=== PATIENT | male | born 1960 | race African-American/Black ===

== ENCOUNTER 2025-05-14 10:53 | Inpatient (IN) | payer OTHER ==
[~2025-05-14] VITALS: Ht 175.3 cm; Wt 92.5 kg
[2025-05-14 10:55] VITALS: O2SAT 100
[2025-05-14 11:24] LABS: HEMATOCRIT. 45.3 % (42.0-52.0); HEMOGLOBIN. 14.8 g/dL (14.0-18.0); MEAN PLATELET VOLUME 7.8 fl (7.4-10.4); PLATELET 335 x1000/uL (130-400); RED BLOOD CELL COUNT 4.97 mill/uL (4.7-6.1); RED CELL DISTRIBUTION WIDTH 15.1 % (11.6-14.6)
[2025-05-14 11:38] LABS: CREATININE 0.9 mg/dL (0.6-1.3); UREA NITROGEN BLOOD 9 mg/dL (9-23)
[2025-05-14 11:39] LABS: TROPONIN I HIGH SENSITIVITY < 4 ng/L (3.0-53)
[2025-05-14 13:20] LABS: EOSINOPHILS % MANUAL 6.0 % (0.0-5.0); LYMPHOCYTES % MANUAL 43.0 % (20.0-50.0); MONOCYTES % MANUAL 11.0 % (2.0-8.0); NEUTROPHILS % MANUAL 40.0 % (45.0-75.0); PLATELET ESTIMATE NORMAL
[2025-05-14] MEDS ORDERED: CLONIDINE 0.1MG TABLET PO PRN (15:15)
[2025-05-14] MEDS ORDERED: ONDANSETRON HCL 4MG/2ML INJ IV PRN (15:15)
[2025-05-14] MEDS ORDERED: DOCUSATE SODIUM 100MG CAPSULE PO PRN (15:15)
[2025-05-14] MEDS ORDERED: IPRATROPIUM/ALBUTEROL 0.5-3(2.5)MG/3ML NEB HHN PRN (15:15)
[2025-05-14] MEDS ORDERED: ACETAMINOPHEN 325MG TABLET PO PRN (15:15)
[2025-05-14] MEDS ORDERED: GUAIFENESIN 200MG/10ML SUGAR FREE UDC PO PRN (15:15)
[2025-05-14] MEDS: ACETAMINOPHEN 325MG TABLET PO SCH (15:18)
[2025-05-14] MEDS ORDERED: DEXTROSE 50% WATER 50ML SYRINGE IV PRN (15:45)
[2025-05-14] MEDS ORDERED: LORAZEPAM 2MG/ML UD SYRINGE IV PRN (15:45)
[2025-05-14] MEDS: ENOXAPARIN 40MG/0.4ML SYR SUBCUT SCH (16:51)
[2025-05-14] MEDS: ASPIRIN 81MG EC TABLET PO SCH (16:52)
[2025-05-14] MEDS: EMPAGLIFLOZIN 10MG TABLET PO SCH (16:52)
[2025-05-14] MEDS: DIVALPROEX SODIUM 500MG ER TABLET PO SCH (16:52)
[2025-05-14] MEDS: PANTOPRAZOLE 40MG DR TABLET PO SCH (16:52)
[2025-05-14] MEDS: FLUOXETINE HCL 20MG CAPSULE PO SCH (16:52)
[2025-05-14] MEDS: BLOOD SUGAR DIAGNOSTIC STRIP TEST SCH (17:00)
[2025-05-14 17:22] LABS: ETHANOL BLOOD < 10 mg/dL (<10)
[2025-05-14] MEDS ORDERED: SODIUM CHLORIDE 0.9% 500 ML IV ONE (17:45)
[2025-05-14 17:48] LABS: OSMOLALITY 296 mOsm/kg (280-295)
[2025-05-14] MEDS: INSULIN LISPRO 100 UNITS/ML SUBCUT SCH (18:19)
[2025-05-14 20:00] VITALS: BP 114/69; PULSE 78; RESP 19; TEMP 36.2; O2SAT 97
[2025-05-14] MEDS ORDERED: INFLUENZA VACCINE 05/PF 0.5 ML SYRINGE IM ONE (21:15)
[2025-05-14] MEDS: PHENYTOIN SODIUM EXTENDED 100MG CAPSULE PO SCH (21:49)
[2025-05-14] MEDS: BENZTROPINE MESYLATE 1MG TABLET PO SCH (21:50)
[2025-05-14] MEDS: ATORVASTATIN CALCIUM 40MG TABLET PO SCH (21:50)
[2025-05-14] MEDS: QUETIAPINE FUMARATE 50MG TABLET PO SCH (21:50)
[2025-05-14 22:37] LABS: INR 1.0
[2025-05-14 22:38] LABS: PHOSPHORUS 4.1 mg/dL (2.5-4.9)
[2025-05-14 22:43] LABS: VITAMIN B12 SERUM 251 pg/mL (211-911)
[2025-05-14] MEDS: LATANOPROST 0.005% OPHTH DROPS 2.5ML BOTHEYE SCH (22:52)
[2025-05-14 22:57] LABS: FOLIC ACID (FOLATE) SERUM 7.04 ng/mL (>5.38)
[2025-05-15] VITALS (8 sets, daily range): BP systolic 91–134; BP diastolic 53–76; PULSE 67–86; RESP 14–19; TEMP 35.9–36.4; O2SAT 95–99
[2025-05-15] MEDS: SODIUM CHLORIDE 0.45% 1,000 ML IV SCH (09:06)
[2025-05-15 09:17] LABS: HEMATOCRIT. 44.7 % (42.0-52.0); HEMOGLOBIN. 14.6 g/dL (14.0-18.0); MEAN PLATELET VOLUME 8.5 fl (7.4-10.4); PLATELET 309 x1000/uL (130-400); RED BLOOD CELL COUNT 4.94 mill/uL (4.7-6.1); RED CELL DISTRIBUTION WIDTH 15.2 % (11.6-14.6)
[2025-05-15 09:22] LABS: CREATININE 0.9 mg/dL (0.6-1.3)
[2025-05-15 09:23] LABS: TRIGLYCERIDE 146 mg/dL (0-150); UREA NITROGEN BLOOD 8 mg/dL (9-23)
[2025-05-15 09:24] LABS: LDL CHOLESTEROL 75 mg/dL (5-100)
[2025-05-15 09:27] LABS: T4 FREE 0.91 ng/dL (0.89-1.76)
[2025-05-15 11:29] LABS: BAND% 1.0 % (1.0-6.0); BASOPHILS % MANUAL 2.0 % (0.0-2.0); EOSINOPHILS % MANUAL 4.0 % (0.0-5.0); LYMPHOCYTES % MANUAL 39.0 % (20.0-50.0); MONOCYTES % MANUAL 14.0 % (2.0-8.0); NEUTROPHILS % MANUAL 40.0 % (45.0-75.0)
[2025-05-15 11:30] LABS: PLATELET ESTIMATE NORMAL
[2025-05-15 13:15] LABS: CLARITY URINE CLEAR (CLEAR); COLOR URINE YELLOW (YELLOW); GLUCOSE URINE 3+ (NEGATIVE); KETONES URINE TRACE (NEGATIVE); LEUKOCYTE ESTERASE URINE NEGATIVE (NEGATIVE); NITRITE URINE NEGATIVE (NEGATIVE); OCCULT BLOOD URINE NEGATIVE (NEGATIVE); PH URINE 7.0 (4.5-8.0); PROTEIN URINE NEGATIVE (NEGATIVE); SPECIFIC GRAVITY URINE 1.017 (1.005-1.030); UROBILINOGEN URINE 0.2 E.U./dL (0.2-1.0)
[2025-05-15 13:37] LABS: *AMPHETAMINES SCREEN URINE NEGATIVE (NEGATIVE)
[2025-05-15 13:38] LABS: *BARBITURATES SCREEN URINE NEGATIVE (NEGATIVE); *BENZODIAZEPINES SCREEN URINE NEGATIVE (NEGATIVE); *COCAINE SCREEN URINE NEGATIVE (NEGATIVE); CANNABINOID URINE SCREEN NEGATIVE (NEGATIVE); ECSTASY MDMA SCREEN URINE NEGATIVE (NEGATIVE); METHADONE URINE SCREEN NEGATIVE (NEGATIVE); OPIATES URINE SCREEN NEGATIVE (NEGATIVE); PHENCYCLIDINE URINE SCREEN NEGATIVE (NEGATIVE)
[2025-05-15 14:31] LABS: BACTERIA URINE FEW; RBC URINE NONE SEEN /hpf (0-2); SQUAMOUS EPITHELIAL CELL URINE RARE /lpf (RARE/1+); WBC URINE 0-2 /hpf (0-2); YEAST URINE NONE SEEN
[2025-05-15 15:50] LABS: ASPARTATE AMINOTRANSFERASE 16 IU/L (<34); BILIRUBIN DIRECT < 0.1 mg/dL (<=3.0); BILIRUBIN TOTAL 0.2 mg/dL (0.1-1.0); PROTEIN TOTAL 6.7 g/dL (6.0-8.3)
[2025-05-15] MEDS: ACETAMINOPHEN 325MG TABLET PO PRN (20:09)
[2025-05-16 04:00] VITALS: BP 119/67; PULSE 75; RESP 16; TEMP 36.2; O2SAT 95
[2025-05-16 08:00] VITALS: BP 117/70; PULSE 72; RESP 18; TEMP 36.2; O2SAT 99
[2025-05-16 09:26] VITALS: BP 123/69; PULSE 89; RESP 18; TEMP 97.9
[2025-05-16 12:00] VITALS: BP 118/67; PULSE 69; RESP 17; TEMP 36.3; O2SAT 98
== END 2025-05-16 15:15 | disposition home or self-care (01) | DRG 48 ==
LOC: ER 10:53 → EDBEDREQ 13:21 → EDBEDREQTM 13:21 → 6WST 18:18
PROVIDERS: ADMIT Internal Medicine; ATTEND Internal Medicine
DX: G90.89 Other disorders of autonomic nervous system (principal); E87.20 Acidosis, unspecified; G20.A1 Parkinson's disease without dyskinesia, without mention of fluctuations; F02.80 Dementia in other diseases classified elsewhere, unspecified severity, without behavioral disturbance, psychotic disturbance, mood disturbance, and anxiety; E11.9 Type 2 diabetes mellitus without complications; G40.909 Epilepsy, unspecified, not intractable, without status epilepticus; I10 Essential (primary) hypertension; E78.5 Hyperlipidemia, unspecified; R29.6 Repeated falls; M17.0 Bilateral primary osteoarthritis of knee; Z79.84 Long term (current) use of oral hypoglycemic drugs; Z79.899 Other long term (current) drug therapy
CPT/HCPCS: 36415; 71045; 73560; 80048; 80061; 80076; 80305; 80320; 81003; 82550; 82607; 82746; 82962; 83605; 83735; 83880; 83930; 84100; 84145; 84439; 84443; 84484; 85025; 85379; 93005; 93970; 94640; 96372; 97162; 97166; 99285; G0378; J1650; J1815; G0480

== ENCOUNTER 2025-05-18 16:32 | Emergency (ER) | payer OTHER ==
[~2025-05-18] VITALS: Ht 193 cm; Wt 92.0 kg
[2025-05-18 16:33] VITALS: O2SAT 96
[2025-05-18 17:19] LABS: HEMATOCRIT. 43.0 % (42.0-52.0); HEMOGLOBIN. 14.1 g/dL (14.0-18.0); MEAN PLATELET VOLUME 8.0 fl (7.4-10.4); PLATELET 257 x1000/uL (130-400); RED BLOOD CELL COUNT 4.75 mill/uL (4.7-6.1); RED CELL DISTRIBUTION WIDTH 15.2 % (11.6-14.6)
[2025-05-18 17:34] LABS: CREATININE 0.9 mg/dL (0.6-1.3); UREA NITROGEN BLOOD 9 mg/dL (9-23)
[2025-05-18 17:36] LABS: ASPARTATE AMINOTRANSFERASE 34 IU/L (<34); BILIRUBIN DIRECT < 0.1 mg/dL (<=3.0); BILIRUBIN TOTAL 0.2 mg/dL (0.1-1.0); PROTEIN TOTAL 7.9 g/dL (6.0-8.3)
[2025-05-18 17:47] LABS: EOSINOPHILS % MANUAL 5.0 % (0.0-5.0); LYMPHOCYTES % MANUAL 27.0 % (20.0-50.0); MONOCYTES % MANUAL 11.0 % (2.0-8.0); NEUTROPHILS % MANUAL 57.0 % (45.0-75.0); PLATELET ESTIMATE NORMAL
[2025-05-18 22:18] VITALS: BP 129/69; PULSE 76; RESP 14; TEMP 37.2; O2SAT 96
== END 2025-05-18 22:36 ==
LOC: ER 16:32 → CANBEDREQ 19:08 → ER 22:36
DX: G20.A1 Parkinson's disease without dyskinesia, without mention of fluctuations (principal); R29.6 Repeated falls; E11.9 Type 2 diabetes mellitus without complications; E78.00 Pure hypercholesterolemia, unspecified; I10 Essential (primary) hypertension; W19.XXXA Unspecified fall, initial encounter
CPT/HCPCS: 36415; 71045; 80048; 80076; 82140; 82550; 85025; 93005; 99285